=== PATIENT | female | born 1980 | race Two or more races ===

== ENCOUNTER 2019-03-24 17:39 | Emergency (ER) | payer MEDICAID ==
[~2019-03-24] VITALS: Ht 170.2 cm; Wt 147.0 kg
[2019-03-24 19:36] VITALS: BP 147/75
== END 2019-03-24 19:38 | disposition home or self-care (01) ==
LOC: ER 17:39
DX: M62.830 Muscle spasm of back (principal); M54.30 Sciatica, unspecified side
CPT/HCPCS: 99282; 99283